=== PATIENT | female | born 1970 | race American Indian/Alaskan Native ===

== ENCOUNTER 2020-08-04 09:16 | Outpatient (CLI) | payer BC ==
--- NOTE | 2020-08-04 10:36 | Mammography Report ---
RIGHT DIGITAL DIAGNOSTIC MAMMOGRAM WITH CAD WITH TOMOSYNTHESIS, 08/04/2020 RIGHT LIMITED BREAST ULTRASOUND CLINICAL INFORMATION / INDICATION: The patient reports clear discharge from the right nipple. TECHNIQUE: Digital right mammographic imaging was performed. Magnification views were obtained. Limit ed ultrasound was performed. This examination was interpreted with the benefit of Computer-Aided Dete ction (CAD) analysis. COMPARISON: Screening mammogram, 05/28/2020 and 05/26/2019 from [facility] FINDINGS: Breast Density: The breasts are extremely dense, which lowers the sensitivity of mammography. MAMMOGRAPHIC FINDINGS: No dominant mass, suspicious calcifications, or architectural distortion in th e right breast. No suspicious retroareolar microcalcifications are demonstrated on magnification view s. ULTRASOUND FINDINGS: Targeted ultrasound evaluation was performed of the area of interest. Sonograp hic evaluation of the retroareolar region demonstrates no evidence of suspicious solid mass, shadowin g or ductal ectasia. IMPRESSION: No mammographic or sonographic evidence of malignancy. No focal finding in the right [address] st to account for the patient's clear nipple discharge. Therefore, clinical correlation is recommende d. Follow up recommendation: Clinical exam BI-RADS Category 1: Negative. A "normal" or negative report should not discourage follow up or biopsy of a clinically significant f inding. A written summary of these findings will be mailed to the patient. The patient will be entered into a mammography reporting system which will generate a reminder letter for the patient's next appointmen t at the appropriate interval. According to the [employer], yearly mammograms are recommended starting at age 40 and continuing as long as a woman is in good health. Breast MRI is recommended for women with an jayde roximately 20-25% or greater lifetime risk of breast cancer, including women with a strong family his tory of breast or ovarian cancer and women who have been treated for Hodgkin's disease. Signer Name: Mary Quinn MD Signed: 08/04/2020 10:31 AM Workstation Name: [id number]
== END 2020-08-04 09:17 | disposition home or self-care (01) ==
LOC: SPVWC 09:16
PROVIDERS: ATTEND Surgery
DX: R92.8 Other abnormal and inconclusive findings on diagnostic imaging of breast (principal); N64.52 Nipple discharge